=== PATIENT | female | born 1990 | race Caucasian/White ===

== ENCOUNTER 2024-04-20 11:57 | Emergency (ER) | payer OTHER, SELFPAY ==
[2024-04-20 12:03] VITALS: BP 99/64; PULSE 58; RESP 18; TEMP 37; O2SAT 100; BMI 25.8
--- NOTE | 2024-04-20 12:28 | CRLHL7_ITS ---
For Patients: As a result of the Cures Act, medical imaging exams and procedure reports are released immediately into your electronic medical record. You may view this report before your referring provider. If you have questions, please contact your health care provider. INDICATION: Trauma COMPARISON: None. TECHNIQUE: Single radiographic view(s) of the pelvis. FINDINGS: No acute displaced fracture is identified on this single view radiograph. The hip joint spaces are grossly preserved. IMPRESSION: No acute displaced fracture is identified on this single view radiograph. The hip joint spaces are grossly preserved. Dictated by Rigo Castanon MD @ 04/20/2024 2:38:37 PM (Electronically Signed)
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
[2024-04-20 14:45] VITALS: BP 108/68; PULSE 87; RESP 18; O2SAT 98
== END 2024-04-20 14:47 | disposition home or self-care (01) ==
PROVIDERS: Emergency Provider Emergency Medicine Emergency Medical Services
DX: M53.3 Sacrococcygeal disorders, not elsewhere classified (principal); V86.95XA Unspecified occupant of 3- or 4- wheeled all-terrain vehicle (ATV) injured in nontraffic accident, initial encounter
CPT/HCPCS: 72170; 99283; 99284

== ENCOUNTER 2024-07-15 12:02 | Outpatient (CLI) | payer BC, SELFPAY ==
--- NOTE | 2024-07-15 12:15 | CRLHL7_ITS ---
For Patients: As a result of the Century Cures Act, medical imaging exams and procedure reports are released immediately into your electronic medical record. You may view this report before your referring provider. If you have questions, please contact your health care provider. INDICATION: Check viability and dates TECHNIQUE: Transabdominal and transvaginal scanning was performed. Transvaginal scanning was performed to better evaluate the IUP and adnexa. Ovarian blood flow was evaluated with color-flow and pulsed Doppler. COMPARISON: None FINDINGS: There is a living IUP with gestational age of 8 weeks 3 days by LMP and 8 weeks 2 days by today`s crown-rump length. EDC based on today`s crown-rump length is 02/22/2025. The embryonic heart rate is measured at 173 beats per minute. The placenta is not yet formed. No subchorionic hemorrhage is evident. A 2.6 cm right ovarian corpus luteum is noted. The right ovary measures 4.2 x 2.9 x 2.5 cm and the left 3.0 x 2.3 x 1.8 cm. Ovarian blood flow is demonstrated with color-flow and pulsed Doppler. No adnexal mass or free fluid is apparent. IMPRESSION: 1. Living IUP with gestational age of 8 weeks 2 days by today`s crown-rump length and EDC of 02/22/2025. 2. No complication evident. Dictated by Román Arnett MD @ 07/16/2024 8:22:53 AM (Electronically Signed)
== END 2024-07-15 12:03 | disposition home or self-care (01) ==
PROVIDERS: Visit Provider Physician Assistant
DX: Z34.91 Encounter for supervision of normal pregnancy, unspecified, first trimester (principal); Z3A.08 8 weeks gestation of pregnancy
CPT/HCPCS: 76817

== ENCOUNTER 2024-07-15 13:20 | Outpatient (CLI) | payer BC, SELFPAY ==
[2024-07-16 00:16] LABS: Chlamydia DNA Amplified* NOT DETECTED (No Detected); GC DNA Amplified* NOT DETECTED (No Detected)
== END 2024-07-15 13:21 | disposition home or self-care (01) ==
PROVIDERS: Visit Provider Physician Assistant
DX: Z34.91 Encounter for supervision of normal pregnancy, unspecified, first trimester (principal); Z3A.08 8 weeks gestation of pregnancy
CPT/HCPCS: 83021; 86592; 86703; 86704; 86706; 86762; 86787; 86803; 86850; 86900; 86901; 87086; 87340; 87491; 87591

== ENCOUNTER 2024-12-02 15:17 | Outpatient (CLI) | payer BC, SELFPAY | END 2024-12-02 15:18 | disposition home or self-care (01) | LOC: NFLDREF 12-05 07:53 | PROVIDERS: Visit Provider Obstetrics & Gynecology | DX: Z34.83 Encounter for supervision of other normal pregnancy, third trimester (principal) | CPT/HCPCS: 86592 ==

== ENCOUNTER 2024-12-11 13:08 | Outpatient (CLI) | payer BC, SELFPAY | END 2024-12-11 13:09 | disposition home or self-care (01) | LOC: US 13:08 | PROVIDERS: Visit Provider Obstetrics & Gynecology | DX: O44.03 Complete placenta previa NOS or without hemorrhage, third trimester (principal); Z3A.29 29 weeks gestation of pregnancy | CPT/HCPCS: 76811 ==

== ENCOUNTER 2025-01-27 15:15 | Outpatient (CLI) | payer BC, SELFPAY | END 2025-01-27 15:16 | disposition home or self-care (01) | LOC: NFLDREF 01-29 02:48 | PROVIDERS: Visit Provider Obstetrics & Gynecology | DX: Z34.83 Encounter for supervision of other normal pregnancy, third trimester (principal) | CPT/HCPCS: 87081; 87653 ==

== ENCOUNTER 2025-02-21 16:55 | Inpatient (IN) | payer BC, SELFPAY ==
[2025-02-21 17:15] VITALS: BP 123/77; PULSE 80; PULSE 82; O2SAT 98
[2025-02-21 17:31] VITALS: BMI 35.2
[2025-02-21 17:36] VITALS: RESP 16; TEMP 36.7
--- NOTE | 2025-02-21 18:54 | W.PM.LDBA ---
Subjective History of Present Illness Time Seen by Provider: 18:54 Narrative: Patient is being admitted to Labor and Delivery for scheduled induction of labor. She is a 34 year old at 40.0 weeks gestation. Her full history and physical was dictated by myself on 02/03/25. Please see this for details. Active movement. Denies LOF, vaginal bleeding or abnormal vaginal discharge. Rare contractions today. Specific Issues/Plans Partner: Puneet H&P: 02/03 Vu #Posterior placenta previa - noted on 2nd level 2 by MFM. Details below. [x] transvaginal US at 28 weeks to reassess ([facility] at [facility]): 12/11/24. RESOLUTION OF PLACENTA PREVIA now >2cm from os! # history of congenital heart defect. Daughter with PDA requiring surgical closure at age 4 # daughter with the tethered spinal cord Level II US at 18-20 weeks: 09/27 within normal limits though some suboptimal views, see details below [x] 10/22: Remainder of anatomy WNL, previa as above *per MFM, no echo needed* [ ] Per [facility], Notify peds at time of delivery of daughter's Hx of patent PDA and tethered spinal cord Status post genetic counseling 08/20/2024: Declined genetic screening. Declined screening and diagnostic testing. Imaginst trimester nuchal translucency: Wnl. Nasal bone visualized. Declined NIPT. Level 2 US: Normal visualized anatomy, suboptimal of cavum septum pellucidum, face profile, 4 chamber heart and LVOT. EFW 271g at 48%ile. MVP 7.9cm. Cx long/closed. Posterior placenta, no previa. Recheck in 3 weeks at [facility]. Repeat level 2, 10/22/24: Remaining anatomy is normal, EFW 508g at 38% and AC 30%. Posterior placenta previa 12/11/2024: EFW 54%, AC 60%, inferior margin of the placenta >2cm from the internal os (not low lying or previa) Vaccinations: COVID: Declined Flu: Declined Tdap: 12/16/2024 RSV: NA 32 week mental health: 12/30/24 hgb: 11.4 Last pap: 09/11/2023. OB - Problem Based A/P Additional Plan (1) : Status: Acute (2) Family history of congenital heart defect: Problem details: daughter PDA requiring surgical closure Status: Acute Plan: Notify peds at time of delivery due to daugther's hx of patent PDA and tethered spinal cord Plan Induction - SVE /-3 - [place] irritable - Induction plan: Cook cath placed at 1915, 50cc/50cc. Uncomplicated. Patient tolerated the procedure well. NST: - 125 bpm, moderate variability, + accel, negative decel OB Exam Physical Exam Vital signs: Temp Pulse Resp BP Pulse Ox 98.1 F 82 16 123/77 98 02/21/25 17:36 02/21/25 17:15 02/21/25 17:36 02/21/25 17:15 02/21/25 17:15 Narrative: Physical exam: General: No acute distress Psych: Alert and oriented x3, full affect HEENT: Normocephalic, atraumatic Lungs: Unlabored breathing Neuro: No focal deficit. Mentating appropriately Pelvic exam: Dry perineum. SVE: []
[2025-02-21 21:42] VITALS: RESP 17; TEMP 37.3
[2025-02-21 22:06] VITALS: BP 128/72; PULSE 70
[2025-02-21 22:49] LABS: Hematocrit 34.9 % (33.0-51.0); Hemoglobin* 11.6 gm/dL (12.0-16.0); Immature Granulocytes Abs Auto 0.05 K/uL (0.00-0.30); Immature Granulocytes Pct Auto 0.5 %; Lymphocytes Absolute Auto 2.05 K/uL (0.90-2.90); Mean Corpuscular HGB Conc 33 gm/dL (32-36); Mean Corpuscular Hemoglobin 28 pg (26-34); Mean Corpuscular Volume 85 fL (80-100); RDW Coefficient of Variation % 14.2 % (11.5-15.5); Red Blood Count 4.12 m/uL (4.00-5.20); White Blood Count* 9.88 K/uL (4.50-11.00)
[2025-02-21 22:50] LABS: Slide Review Reflex No
[2025-02-21 23:18] VITALS: TEMP 36.9
[2025-02-22] VITALS (75 sets, daily range): BP systolic 87–146; BP diastolic 50–80; PULSE 45–105; RESP 16–18; TEMP 36.6–37.3; O2SAT 91–100
[2025-02-22] MEDS: OXYTOCIN 30 unit/500 ML in NS 30 UNIT/500 ML BAG IVPB (01:10)
[2025-02-22] MEDS: LACTATED RINGERS 1000 ML 1,000 ML 124 ML IV (01:10)
[2025-02-22] MEDS: LACTATED RINGERS 1000 ML 1,000 ML 114 ML IV (09:23)
--- NOTE | 2025-02-22 11:37 | P.OBPN_ITS ---
Subjective Time Seen by Provider: 11: Date Seen: 02/22/25 Narrative: Patient aware of some mild contractions/cramping. 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 Continue induction. Epidural prn.
[2025-02-22] MEDS: LACTATED RINGERS 1000 ML 1,000 ML 110 ML IV (13:49)
[2025-02-22] MEDS: ROPIVACAINE 0.2% 100 ml 100 ML 12 MG EPIDURAL (13:50)
[2025-02-22] MEDS: BUPIVACAINE 0.25% PF 10 ML 10 ML ML EPIDURAL (13:50)
--- NOTE | 2025-02-22 13:59 | PM.ANBPRC ---
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 Marital status: . Latter Day/cultural needs: no. Chemical or radiation exposure: no. Pre- tobacco use: 1-2 per week. Pre- alcohol use: no. Current tobacco use: no. Current alcohol use: no. Recreational drug use: no. Dietary restrictions: no. Blood transfusion acceptable in an emergency: yes. PSYCHOSOCIAL HISTORY: History of depression or currently depressed: no. Current or past physical, emotional, or sexual mistreatment: no. Problems that will make it hard to make it to appointments: no. What is your current living situation?: I presently have a place to live Problems where you live: no known problems In the past 12 months, utilities in danger of being shut off: no In past 12 months, lack of transportation kept you from medical appts, meetings, work, or getting things needed for daily living: no In the past 12 mos, have been you worried that your food would run out before you had money to buy more?: never true In the past 12 mos, the food you bought just didn't last and you didn't have money to buy more?: never true Smoking Status: Never smoker How often does anyone, including family, friends and others, physically hurt you: never How often does anyone, including family, friends and others, insult or talk down to you: never How often does anyone, including family, friends and others, threaten you with harm: never How often does anyone, including family, friends and others, scream or curse at you: never Meds Home Medications and Allergies Home Medications ?Medication ?Instructions ?Recorded ?Confirmed ?Type [id number] 3 fatty no.1 27 1 cap PO DAILY 07/15/24 02/21/25 History mg-1 mg-300 mg capsule famotidine 10 mg tablet (Pepcid AC) 10 mg PO QDAY 12/16/24 02/21/25 History Allergies Allergy/AdvReac Type Severity Reaction Status Date / Time No Known Drug Allergies Allergy Verified 02/19/25 11:16 Results Labs Labs: Laboratory Results - last 24 hr 02/21/25 22:40 WBC 9.88 RBC 4.12 Hgb 11.6 L Hct 34.9 MCV 85 MCH 28 MCHC 33 RDW Coeff of Vida 14.2 Plt Count 256 Neut % (Auto) 70.3 Lymph % (Auto) 20.7 [place] % (Auto) 7.6 Eos % (Auto) 0.8 Baso % (Auto) 0.1 Neut # (Auto) 6.94 Lymph # (Auto) 2.05 [place] # (Auto) 0.80 Eos # (Auto) 0.08 Baso # (Auto) 0.01 Abs Immat Gran (auto) 0.05 Imm/Tot Granulo (auto) 0.5 Blood Type B Positive Antibody Screen NEGATIVE Vital Signs Vital Signs: Last Vital Signs Temp 98.5 F 02/22/25 12:46 Pulse 80 02/22/25 13:57 Resp 16 02/22/25 12:46 BP 119/69 02/22/25 13:57 Pulse Ox 97 02/22/25 13:57 Weight: 108.136 kg Height: 175.26 cm Anesthesia Procedures Epidural Insertion Patient Location: OB Start Time: 13:30 Stop Time: 13:59 Start Date: 02/22/25 Stop Date: 02/22/25 Reason for Block: procedure for pain Patient Position: sitting Performed By: Favio Nava Preanesthetic Checklist: IV checked, risks and benefits discussed, monitors and equipment checked, pre-op evaluation, timeout performed and anesthesia consent Prep: chlorhexidine gluconate Monitoring: blood pressure monitoring, continuous pulse oximetry and heart rate Approach: midline Vertebral Space: lumbar (1-5) Epidural Technique: BREN saline Needle Type: Tuohy needle Injection Technique: continuous catheter Needle gauge: 17 Needle Length (cm): 10 cm Needle Insertion Depth (cm): 8 Catheter Gauge: 19 Catheter Type: multi-orifice Catheter at skin depth (cm): 14 Test Dose Result: negative and lidocaine 1.5% with epinephrine 1 to 200,000
[2025-02-22] MEDS: PHENYLEPHRINE 100 MCG/ML SYRINGE IVP ×2 (15:04→16:33)
[2025-02-22] MEDS: LACTATED RINGERS 1000 ML 1,000 ML 510 ML IV (16:47)
--- NOTE | 2025-02-22 17:36 | PM.OBPNL ---
Subjective Date Seen: 02/22/25 Narrative: Patient is comfortable with epidural, not feeling contractions or pressure. Pitocin infusion had been discontinued due to concerns about FHR tracing. Contractions have spaced to every 4-5 minutes. 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 Consider restarting pitocin infusion once fetus rotates.
--- NOTE | 2025-02-22 19:10 | PM.OBPNL ---
Subjective Time Seen by Provider: 19:10 Date Seen: 02/22/25 Narrative: Feeling a little pressure. Lying on right side. Objective Vital Signs: Last Vital Signs Temp 97.8 F 02/22/25 17:25 Pulse 100 02/22/25 18:59 Resp 16 02/22/25 17:25 BP 87/50 L 02/22/25 18:59 Pulse Ox 96 02/22/25 14:12 Pelvic Exam Dilation (cm): 10 Effacement (%): 100 Station: +1 Contractions Monitor mode: External Contraction Frequency: q4 minutes Contraction pattern: Regular Contraction intensity: Strong/Firm Pitocin Rate (mU/min): 0 Assessment Assessment: active labor Amniotic Membrane Status: AROM Status: Category l Heart Rate Baseline: 150 Contact Printer Dry Film Variability: Moderate (6-25) Monitor Accelerations: Present Monitor Decelerations: None Plan Plan: Will start active pushing.
--- NOTE | 2025-02-22 19:57 | W.PM.OBVAGDE ---
OB Procedure Vag Delivery Mother Details Mother Details: The patient is a 34 year-old, 2, Para 1, admitted on 02/21/25 at 40 0/7 weeks gestation for elective induction of labor. Gaitan score was 4 on admission. A Cook catheter was placed for cervical ripening. : 2 Para: 1 Weeks Gestation: 40 Admission Date: 02/21/25 Additional Details Amniotic Membrane Status: intact Amniotic Membrane Rupture Date: 02/22/25 Amniotic Membrane Rupture Time: 11:26 Amniotic Membrane Fluid Description: Clear Analgesia/Anesthesia Type: Epidural Waterbirth: No Pitcoin: Yes Intrapartal Events: Labor Induction Induction Method: Intracervical balloon catheter and per pitocin protocol Delivery augmentation: rupture of membranes Labor Onset: 13:00 Complete: 19:08 Pushin:19 Heart: heart tones during second stage were 160 baseline with moderate variability and variable decelerations to 120s. Delivery Details Delivery Date: 02/22/25 Delivery Time: 19:44 Route of delivery: Gender: Male Infant Viability: Alive; Heart Rate Present Position at Delivery: OA Delivery Details: Delivered via spontaneous vaginal delivery. Infant was placed on maternal abdomen.? Cord was clamped and cut after a 30-60 second delay. Nose and mouth were bulb suctioned.? Infant weight pending. 1 Minute Interval Total Score: 8 5 Minute Interval Total Score: 9 Additional Details Shoulder Dystocia: No Placenta Delivery Time: 19:50 Placental Delivery Description: Spontaneous Blood Loss: 125 Laceration: None Episiotomy Description: None Blood Loss Measurement Type: QBL Bakri Used: No Sponge/Need Count Correct: Yes Cord Vessel Description: 3 Vessels Event Summary Status: Mother and were stable after delivery. Disposition: floor
[2025-02-22 20:51] LABS: Hematocrit 34.0 % (33.0-51.0); Hemoglobin* 11.3 gm/dL (12.0-16.0); Mean Corpuscular HGB Conc 33 gm/dL (32-36); Mean Corpuscular Hemoglobin 28 pg (26-34); Mean Corpuscular Volume 85 fL (80-100); Red Blood Count 3.99 m/uL (4.00-5.20); White Blood Count* 14.83 K/uL (4.50-11.00)
[2025-02-22 20:52] LABS: Slide Review Reflex No
[2025-02-22 21:09] LABS: Alanine Aminotransferase* 19 U/L (4-35); Aspartate Amino Transferase* 30 U/L (12-35); Blood Urea Nitrogen* 10 mg/dL (5-24); Creatinine* 0.7 mg/dL (0.5-1.5); Est. Creatinine Clearance* 118.35; Estimated Glomerular Filt Rate 116 ml/min
[2025-02-23] MEDS: IBUPROFEN 600 MG TABLET PO ×3 (04:53→20:18)
[2025-02-23 04:56] VITALS: BP 126/82; PULSE 73; RESP 18; TEMP 36.7; O2SAT 98
[2025-02-23 06:13] LABS: Hemoglobin* 10.5 gm/dL (12.0-16.0)
--- NOTE | 2025-02-23 07:42 | PM.OBPNVD1 ---
OB - PN:Subj Subjective Date Seen: 02/23/25 Patient comments OB post-: no complaints, pain well controlled and tolerating diet infant status: and doing well OB - PN: Obj Exam Physical Exam: Vital signs: Temp Pulse Resp BP Pulse Ox O2 Del Method 98.1 F 73 18 126/82 98 Room Air 02/23/25 04:56 02/23/25 04:56 02/23/25 04:56 02/23/25 04:56 02/23/25 04:56 02/23/25 04:56 Constitutional: Constitutional: no acute distress Routine Neck Exam: Neck: Present normal inspection Routine Respiratory Exam: Respiratory: Present CTA bilaterally; Absent respiratory distress Routine Cardiovascular Exam: Cardiovascular: Present RRR; Absent murmur Routine Abdominal Exam: Abdominal: Present soft; Absent tenderness Fundus: Present firm Routine Extremities Exam: Extremities: Present normal inspection and pedal edema; Absent calf tenderness Routine Neurological Exam: Neurological: Present alert and oriented X3 Routine Psychiatric Exam: Psychiatric: Present normal affect OB - PN: Obj Data Labs Labs: Laboratory Results - last 24 hr 02/22/25 02/23/25 20:26 05:56 WBC 14.83 H RBC 3.99 L Hgb 11.3 L 10.5 L Hct 34.0 MCV 85 MCH 28 MCHC 33 Plt Count 225 BUN 10 Creatinine 0.7 Estimated Creat Clear 118.35 Estimated GFR 116 AST 30 ALT 19 OB - PN: A/P Delivery Assessment and Plan (1) Status post delivery at term: Status: Acute Plan day: 1 Plan: routine care
--- NOTE | 2025-02-23 07:45 | PM.OBDSVD1 ---
DS: Providers Provider Date Seen: 02/23/25 Date of admission: 02/21/25 16:55 Primary care physician: Not a Local Provider Admitting Clinician: Isaura Lorenzo MD Attending Physician on discharge: Nicki Clark MD Date of Discharge: 02/23/25 DS: Diagnosis Discharge Diagnosis (1) Status post delivery at term: Status: Acute (2) Family history of congenital heart defect: Status: Acute Problem details: daughter PDA requiring surgical closure Exam Const: Vital Signs, click to edit/add: Vital Signs - 24 hr 02/22/25 08:15 02/22/25 09:03 02/22/25 09:23 Temperature 98.9 F Pulse Rate 80 70 Pulse Rate [Pulse Oximeter] Respiratory Rate 18 Blood Pressure 118/67 100/56 L Blood Pressure [Le ft Arm] Pulse Oximetry Oxygen Delivery [facility] 02/22/25 10:07 02/22/25 10:26 02/22/25 10:59 Temperature 98.5 F Pulse Rate 61 77 Pulse Rate [Pulse Oximeter] Respiratory Rate 18 Blood Pressure 113/61 140/75 H Blood Pressure [Le ft Arm] Pulse Oximetry Oxygen Delivery [facility] 02/22/25 11:16 02/22/25 11:30 02/22/25 12:46 Temperature 98.3 F 98.5 F Pulse Rate 65 75 Pulse Rate [Pulse Oximeter] Respiratory Rate 16 16 Blood Pressure 122/70 121/71 Blood Pressure [Le ft Arm] Pulse Oximetry Oxygen Delivery [facility] 02/22/25 13:27 02/22/25 13:32 02/22/25 13:37 Temperature Pulse Rate Pulse Rate [Pulse Oximeter] Respiratory Rate Blood Pressure Blood Pressure [Le ft Arm] Pulse Oximetry 100 100 100 Oxygen Delivery [facility] 02/22/25 13:41 02/22/25 13:42 02/22/25 13:43 Temperature Pulse Rate 69 68 Pulse Rate [Pulse Oximeter] Respiratory Rate Blood Pressure 135/74 128/74 Blood Pressure [Le ft Arm] P[facility] Oximetry [facility] 02[facility]/25 13:47 02/22/25 13:47 02/22/25 13:48 Temperature Pulse Rate 69 Pulse Rate [Pulse Oximeter] Respiratory Rate Blood Pressure 134/77 Blood Pressure [Le ft Arm] Pulse Oximetry 100 91 Oxygen Delivery [facility] 02/22/25 13:49 02/22/25 13:51 02/22/25 13:52 Temperature Pulse Rate 65 70 Pulse Rate [Pulse Oximeter] Respiratory Rate Blood Pressure 123/68 125/70 Blood Pressure [Le ft Arm] Pulse Oximetry [facility] 02/22/25 13:53 02/22/25 13:55 02/22/25 13:57 Temperature Pulse Rate 78 71 80 Pulse Rate [Pulse Oximeter] Respiratory Rate Blood Pressure 123/72 119/70 119/69 Blood Pressure [Le ft Arm] Pulse Oximetry 97 [facility] 02/22/25 14:02 02/22/25 14:04 02/22/25 14:07 Temperature Pulse Rate 76 Pulse Rate [Pulse Oximeter] Respiratory Rate Blood Pressure 119/69 Blood Pressure [Le ft Arm] Pulse Oximetry 96 96 [facility] 02/22/25 14:09 02/22/25 14:12 02/22/25 14:14 Temperature Pulse Rate 75 73 Pulse Rate [Pulse Oximeter] Respiratory Rate Blood Pressure 120/71 115/63 Blood Pressure [Le ft Arm] Pulse Oximetry 96 [facility] 02/22/25 14:34 02/22/25 14:46 02/22/25 15:00 Temperature 98.2 F Pulse Rate 54 L 53 L Pulse Rate [Pulse Oximeter] Respiratory Rate 16 Blood Pressure 91/54 L 89/50 L Blood Pressure [Le ft Arm] Pulse Oximetry [facility] 02/22/25 15:08 02/22/25 15:16 02/22/25 15:30 Temperature 98.2 F Pulse Rate 57 L 83 Pulse Rate [Pulse Oximeter] Respiratory Rate 16 Blood Pressure 96/53 L 92/55 L Blood Pressure [Le ft Arm] Pulse Oximetry [facility] 02/22/25 15:45 02/22/25 16:02 02/22/25 16:15 Temperature Pulse Rate 76 79 63 Pulse Rate [Pulse Oximeter] Respiratory Rate Blood Pressure 90/51 L 95/58 L 100/58 L Blood Pressure [Le ft Arm] Pulse Oximetry [facility] 02/22/25 16:19 02/22/25 16:31 02/22/25 16:45 Temperature 98.2 F Pulse Rate 61 60 Pulse Rate [Pulse Oximeter] Respiratory Rate 16 Blood Pressure 96/53 L 95/56 L Blood Pressure [Le ft Arm] Pulse Oximetry [facility] 02/22/25 16:50 02/22/25 17:00 02/22/25 17:14 Temperature Pulse Rate 59 L 45 L 59 L Pulse Rate [Pulse Oximeter] Respiratory Rate Blood Pressure 90/56 L 90/50 L 89/55 L Blood Pressure [Le ft Arm] Pulse Oximetry [facility] 02/22/25 17:25 02/22/25 17:30 02/22/25 17:45 Temperature 97.8 F Pulse Rate 71 88 Pulse Rate [Pulse Oximeter] Respiratory Rate 16 Blood Pressure 91/55 L 96/63 Blood Pressure [Le ft Arm] Pulse Oximetry [facility] 02/22/25 18:01 02/22/25 18:15 02/22/25 18:30 Temperature Pulse Rate 88 94 95 Pulse Rate [Pulse Oximeter] Respiratory Rate Blood Pressure 113/58 L 92/55 L 93/53 L Blood Pressure [Le ft Arm] Pulse Oximetry [facility] 02/22/25 18:44 02/22/25 18:59 02/22/25 19:15 Temperature Pulse Rate 90 100 93 Pulse Rate [Pulse Oximeter] Respiratory Rate Blood Pressure 93/51 L 87/50 L 122/66 Blood Pressure [Le ft Arm] Pulse Oximetry [facility] 02[facility]22/25 19:31 02/22/25 19:47 02/22/25 19:47 Temperature Pulse Rate 79 105 H Pulse Rate [Pulse Oximeter] Respiratory Rate 16 Blood Pressure 119/58 L 122/57 L Blood Pressure [Le ft Arm] Pulse Oximetry [facility] 02/22/25 19:51 02/22/25 20:00 02/22/25 20:00 Temperature Pulse Rate 98 91 Pulse Rate [Pulse Oximeter] Respiratory Rate Blood Pressure 146/72 H 143/64 H 141/66 H Blood Pressure [Le ft Arm] Pulse Oximetry [facility] 02/22/25 20:00 02/22/25 20:00 02/22/25 20:15 Temperature 98.7 F Pulse Rate 98 90 Pulse Rate [Pulse Oximeter] Respiratory Rate 18 Blood Pressure 135/58 L Blood Pressure [Le ft Arm] Pulse Oximetry [facility] 02/22/25 20:15 02/22/25 20:31 02/22/25 20:33 Temperature 99.2 F Pulse Rate 91 Pulse Rate [Pulse Oximeter] Respiratory Rate 18 18 Blood Pressure 129/65 Blood Pressure [Le ft Arm] Pulse Oximetry [facility] 02/22/25 20:44 02/22/25 20:45 02/22/25 21:00 Temperature Pulse Rate 94 76 Pulse Rate [Pulse Oximeter] Respiratory Rate 16 Blood Pressure 134/69 126/59 L Blood Pressure [Le ft Arm] Pulse Oximetry [facility] 02/22/25 21:00 02/22/25 21:15 02/22/25 21:15 Temperature 98.7 F 99.2 F Pulse Rate 98 Pulse Rate [Pulse Oximeter] Respiratory Rate 18 18 Blood Pressure 123/58 L Blood Pressure [Le ft Arm] Pulse Oximetry [facility] 02/22/25 21:29 02/22/25 21:30 02/22/25 23:15 Temperature 98.9 F Pulse Rate 91 Pulse Rate [Pulse Oximeter] 98 Respiratory Rate 17 18 Blood Pressure 124/64 Blood Pressure [Le ft Arm] 138/80 Pulse Oximetry 100 Oxygen Delivery [facility] Room Air 02/23/25 04:56 Temperature 98.1 F Pulse Rate Pulse Rate [Pulse Oximeter] 73 Respiratory Rate 18 Blood Pressure Blood Pressure [Le ft Arm] 126/82 Pulse Oximetry 98 Oxygen Delivery [facility] Room Air Documenting provider has reviewed patient's vital signs: yes Common normals: no apparent distress and oriented x3 General appearance: cooperative and comfortable Resp: Common normals: normal respiratory effort Cardio: Common normals: regular rate and regular rhythm Rate: regular rate Rhythm: regular rhythm GI: Common normals: soft to palpation and non-tender Inspection: normal to inspection Palpation: soft Extremity: Common normals: normal to inspection and no pedal edema Neuro: Common normals: oriented x3 Psych: Common normals: affect normal OB - DS: Summary Hospital Course Hospital Course: The patient is a 34 year old G 2 now P 2001 at 40 weeks gestation that was admitted to the Center on 02/21/25 for induction of labor. She had an uncomplicated vaginal delivery. She delivered a viable male infant. She is breast feeding. the patient has done well. Peripartum Data Infant delivery method: Vaginal Laceration description: None Episiotomy description: None complications: none [place] Infant Gender: Male Infant Discharge Plan: Home Status at Discharge Functional status at discharge: independent ambulation Overall status at discharge: patient is back to baseline Time Spent with Patient Time attestation: Total time spent providing and/or coordinating discharge services: Time spent: Less than 30 minutes Discharge Plan Discharge Disposition: Home, Self-Care Date of Admission: 02/21/25 16:55 Consulting Providers: Nicki Clark Primary Care Provider: Provider,Not a Local Condition: Stable Anticipated Discharge Date/Time: 02/23/25 21:00 Discharge Medications: New docusate sodium 100 mg Capsule 100 mg PO DAILY Qty: 30 0RF ibuprofen 600 mg Tablet 600 mg PO Q6H PRNQty: 30 0RF Continued [id number] 3 fatty no.1 27-1-300 mg capsule 1 cap PO DAILY famotidine [Pepcid AC] 10 mg tablet 10 mg PO QDAY Discharge Orders: Discharge Order (Routine); Ordered 02/23/25 Ordered By: Nicki Clark Patient Education: OB Care, OB Over the Counter Medication Information, OB Vaginal/Breast Feeding Activity Level: Activity as Tolerated Discharge Diet: Regular Follow Up Appointments: Provider,Not a Local [Primary Care Provider, Family Practice] Forms: [employer] Info Instructions
[2025-02-23 08:34] VITALS: BP 109/76; PULSE 73; RESP 16; TEMP 36.5; O2SAT 97
--- NOTE | 2025-02-23 11:33 | PM.ANPOST ---
Post Anesthesia Note Post Anesthesia Note Patient seen: Inpatient Respiratory Status: adequate Cardiovascular Status: adequate Mental Status: baseline Pain: adequate Temp: baseline Anesthetic awareness: N/A Complications: none Follow care: none
[2025-02-23] MEDS: DOCUSATE SODIUM 100 MG CAPSULE PO (11:40)
[2025-02-23 11:44] VITALS: BP 117/78; PULSE 72; RESP 16; O2SAT 97
[2025-02-23 16:41] VITALS: BP 110/75; PULSE 69; RESP 16; TEMP 36.4; O2SAT 97
[2025-02-23] MEDS: ACETAMINOPHEN 500 MG TABLET 1000 MG PO (16:52)
== END 2025-02-23 21:30 | disposition home or self-care (01) | DRG 560 ==
PROVIDERS: Obstetrics & Gynecology; Admitting Provider Obstetrics & Gynecology; Visit Provider Obstetrics & Gynecology
DX: O76 Abnormality in fetal heart rate and rhythm complicating labor and delivery (principal); Z3A.40 40 weeks gestation of pregnancy; Z87.74 Personal history of (corrected) congenital malformations of heart and circulatory system; Z37.0 Single live birth
CPT/HCPCS: 01967; 36415; 59200; 82565; 84450; 84460; 84520; 85018; 85025; 85027; 86592; 86850; 86900; 86901; A9270; C1726; J0665; J2270; J2795; J7120